=== PATIENT | female | born 1940 | race Caucasian/White ===

== ENCOUNTER 2018-08-28 08:10 | Day surgery (SDC) | payer OTHER, SELFPAY ==
[2018-08-28] VITALS (8 sets, daily range): BP systolic 102–118; BP diastolic 57–68; PULSE 68–79; RESP 11–16; TEMP 36.3–36.8; O2SAT 94–98; BMI 25.1
[2018-08-28] MEDS: SODIUM CHLORIDE 0.9% 1,000 ML 200 ML IV (09:23)
--- NOTE | 2018-08-28 10:47 | PM.PREOP ---
Pre-operative Note Interval Note History & Physical reviewed/Exam performed by Physician: Yes Changes to H&P: No H&P completed within 30 days and has changed as indicated here:: none ASA Class (for procedural sedation): II
[2018-08-28] MEDS: MIDAZOLAM 5 MG/5 ML VIAL IV (10:52)
--- NOTE | 2018-08-28 11:00 | PM.OP.ENDO ---
Operative Date/Time/Diagnoses Date of procedure: 08/28/18 Procedure & Clinicians Study performed: EGD with balloon dilation Moderate conscious sedation was administered by the endoscopy nurse and supervised by the endoscopist. The following parameters were monitored: Oxygen saturation, heart rate, blood pressure, and response to care. Sedation: 5 mg of midazolam, 100 micro g fentanyl Indications: Esophageal dysphagia, esophageal stricture noted on esophagram Procedure Notes Procedure in detail: Prior to the procedure, history and physical was performed, and patient medications and allergies were reviewed. Preprocedure nursing history and assessment was reviewed. Patient identification and proposed procedure were verified by the physician and nurse in the procedure room. The physical status of the patient was reassessed after the procedure. After informed consent was obtained including risks, benefits, and alternatives, the scope was passed under direct vision. Throughout the procedure, the patient's blood pressure, pulse, and oxygen saturations were monitored continuously. The upper endoscope was introduced through the mouth and advanced to the 2nd portion of the duodenum. Retroflexion was performed in the stomach. The patient tolerated the procedure well. The distal esophagus was characterized by a few concentric Schatzki's rings. To the rings were very mild and nonobstructing. The most distal ring at the GE junction was moderate in severity and could be traversed with the scope using gentle forward pressure. There was some very mild mucosal trauma after traversing the stricture. The stricture was dilated with a TTS dilation balloon from 10 mm up to 12 mm in maximal diameter. The Z-line was regular and located at 35 cm A 5 cm hiatal hernia was noted. The stomach was otherwise normal appearing The entire examined duodenum was normal appearing Impression: A few mild Schatzki's rings in the distal esophagus. One moderately severe Schatzki's ring at the GE junction dilated with a balloon up to 12 mm. Regular Z-line 5 cm hiatal hernia Normal appearing duodenum Sedation minutes: 14 Plan for aftercare: Recommendations: Resume home medications Follow anti-reflux diet and lifestyle Follow-up in GI clinic as previously scheduled Discharged home with escort
[2018-08-28] MEDS: fentaNYL 250 MCG/5 ML INJ IV (11:05)
== END 2018-08-28 12:02 | disposition home or self-care (01) ==
PROVIDERS: PCP Internal Medicine; Visit Provider Internal Medicine
PROC: 0DJ08ZZ Inspection of Upper Intestinal Tract, Via Natural or Artificial Opening Endoscopic (ICD-10-PCS; CPT 43235; principal; 2018-08-28 10:00)
DX: R13.14 Dysphagia, pharyngoesophageal phase (principal); K44.9 Diaphragmatic hernia without obstruction or gangrene; K22.2 Esophageal obstruction; Z72.0 Tobacco use
CPT/HCPCS: 43249; J2250; J3010